=== PATIENT | male | born 1960 | race Caucasian/White ===

== ENCOUNTER 2018-09-16 03:57 | Emergency (ER) | payer BC, OTHER ==
[2018-09-16 04:10] VITALS: BP 143/77
--- NOTE | 2018-09-16 04:19 | EDM.PDOC ---
ED HPI GENERAL MEDICAL PROBLEM - General Chief Complaint: Back Pain or Injury Stated Complaint: Mid-back pain Time Seen by Provider: 09/16/18 04:15 Source of Information: Reports: Patient, Family (), Old Records ([facility] EMR. No paper hospital chart available.), Other ([place] EMR) History Limitations: Reports: No Limitations - History of Present Illness INITIAL COMMENTS - FREE TEXT/NARRATIVE: The patient was brought to the emergency room via private automobile for evaluation of a Workmen's Compensation injury, which occurred about 3 weeks ago. 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 He did follow -up with his regular providers at [facility] on 09/03 and 09/09 with negative x-rays in that facility on 09/03. He has seen his chiropractor and a physical therapist for 1 visit for his above complaints with no improvement with this treatment. Patient has been back to work for the last couple of days on restricted duty, including 20 pound lifting restriction, etc., with no acute injury this evening. His symptoms did worsen throughout his work today with the patient coming home from work at 23:00 hours this past evening. He did take his Zanaflex and Ultram at that time with no improvement of his symptoms. He has not taken either ibuprofen or Voltaren today. Note that prior to this the patient had been taking ibuprofen and Voltaren concurrently with an additional NSAID topical preparation and ice packs. No recent history of abdominal pain, heartburn, nausea, diarrhea, melena, gross hematochezia, or any food intolerance , including fatty foods, etc.. He denies any gross hematuria, colic, or other UTI symptoms. The patient denies any chest pain/pressure, heart flutter, dizziness, orthostasis, orthopnea, diaphoresis, paresthesias, recent decreased exercise tolerance, or any other anginal-type symptoms. The patient also denies any recent fever, cough, wheezing, dyspnea, etc.. Onset: Gradual, Unknown/Unsure Duration: Constant, Getting Worse Location: Reports: Back. 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: Cold Therapy, Other Medication(s) (As above) Middle Back Pain Score (Numeric/FACES): 10 - Related Data Allergies Allergy/AdvReac Type Severity Reaction Status Date / Time No Known Allergies Allergy Verified 03/04/14 19:02 Home Meds: Home Meds Aspirin [Juan Chewable Aspirin] 81 mg PO DAILY 03/04/14 [History] atorvaSTATin Calcium [Atorvastatin Calcium] 40 mg PO DAILY 09/16/18 [History] tiZANidine HCl [Tizanidine HCl] 2 mg PO TID PRN 09/16/18 [History] traMADol HCl [Tramadol HCl] 50 mg PO Q6H PRN 09/16/18 [History] Past Medical History HEENT History: Reports: Other (See Below) Other HEENT History: Nasal fracture as a teenager Cardiovascular History: Reports: Afib, High Cholesterol, Other (See Below) Other Cardiovascular History: Atrial fibrillation has since resolved. Mild left atrial enlargement by echocardiogram. Respiratory History: Reports: Sleep Apnea, Other (See Below) Other Respiratory History: CPAP therapy Gastrointestinal History: Reports: None Genitourinary History: Reports: None Musculoskeletal History: Reports: Arthritis, Back Pain, Chronic, Fracture, Osteoarthritis, Other (See Below) Other Musculoskeletal History: Nasal fracture as above. Low back injury in about 1994. Right ankle fracture at age 5 Endocrine/Metabolic History: Reports: Obesity/BMI 30+ - Past Surgical History HEENT Surgical History: Reports: Oral Surgery, Other (See Below) Other HEENT Surgeries/Procedures: [place] teeth extraction in 1998 GI Surgical History: Reports: Colonoscopy, Other (See Below) Other GI Surgeries/Procedures: Colonoscopy on 04/17/16 Male Surgical History: Reports: Vasectomy, Other (See Below) Other Male Surgeries/Procedures: Vasectomy in 2012 at age 43 Musculoskeletal Surgical History: Reports: Arthroscopic Knee, Arthroscopic Procedure, Other (See Below) Other Musculoskeletal Surgeries/Procedures:: Right knee arthroscopic partial medial and lateral meniscectomies on 01/04/15. - Past Imaging History Past Imaging History: Reports: Cardiac Echo (01/24/13 with ejection fraction of 65% and findings as above.), MRI (Lumbar spine on 12/22/14.), Sleep Study (.) Social & Family History - Tobacco Use Smoking Status *Q: Current Every Day Smoker Tobacco Use Within Last Twelve Months: Cigarettes Years of Tobacco use: 44 Packs/Tins Daily: 1 Packs/Tins Daily Comment: Started smoking at age 14 with maximum use of 2 packs per day Used Tobacco, but Quit: No Smoking Cessation Information Provided To Patient: Yes Second Hand Smoke Exposure: No Second Hand Smoke Education Provided: No - Living Situation & Occupation Living situation: Reports: (2006, 4 children), with Family 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 ED EXAM,LOWER BACK PAIN/INJURY - Physical Exam Exam: See Below Exam Limited By: No Limitations General Appearance: Alert, WD/WN, Mild Distress. No: Lethargic Neck: Normal Inspection, Supple, Non-Tender, Full Range of Motion Respiratory/Chest: No Respiratory Distress, Lungs Clear, Normal Breath Sounds, No Accessory Muscle Use, Chest Non-Tender. No: Pleural Rub, Retractions Cardiovascular: Normal Peripheral Pulses, Regular Rate, Rhythm, No Edema, No Gallop, No JVD, No Murmur, No Rub. No: Gallop/S3, Gallop/S4, Friction Rub GI/Abdominal: Normal Bowel Sounds, Soft, Non-Tender, No Organomegaly, No Distention, No Abnormal Bruit, No Mass, Pelvis Stable, Other (Obese). No: Guarding (Male) Exam: Deferred Rectal (Males) Exam: Deferred Back Exam: Decreased Range of Motion (Secondary to pain), Muscle Spasm ( Moderate lower to mid thoracic bilateral muscle spasms with nonspecific localized tenderness). No: CVA Tenderness (L), CVA Tenderness (R), Paraspinal Tenderness, Vertebral Tenderness Extremities: Normal Inspection, Normal Range of Motion, Non-Tender, No Pedal Edema, Normal Capillary Refill. No: Re's Sign Neurological: Alert, Normal Mood/Affect, Normal Dorsiflexion, CN II-XII Intact, Normal Plantar Flexion, Normal Gait, No Motor/Sensory Deficits, Oriented x 3 Psychiatric: Normal Affect, Normal Mood Skin Exam: Warm, Dry, Intact, Normal Color, No Rash. No: Diaphoretic Lymphatic: No Adenopathy Course - Vital Signs Last Recorded V/S: Last Vital Signs Temp 36.7 C 09/16/18 04:00 Pulse 61 09/16/18 04:00 Resp 16 09/16/18 04:00 BP 143/77 H 09/16/18 04:00 Pulse Ox 100 09/16/18 04:00 Vital Signs - 24 hr 09/16/18 04:00 Temperature [ 36.7 C Oral] Pulse, 61 Peripheral [ Pulse Oximetry] Respiratory 16 Rate Blood Pressure 143/77 H [Right Upper Arm] O2 Sat by Pulse 100 Oximetry - Orders/Labs/Meds Orders: Active Orders 24 hr Category Date Time Status Obtain Past Medical Record [OM.PC] Routine Oth 09/16/18 04:19 Active Labs: None Meds: Medications Discontinued Medications Generic Name Dose Route Start Last Admin Trade Name Ernesto PRN Reason Stop Dose Admin Ketorolac Tromethamine 60 mg 09/16/18 04:23 09/16/18 04:33 Toradol IM 09/16/18 04:24 60 mg ONETIME ONE Administration Lorazepam 2 mg 09/16/18 04:24 09/16/18 04:34 Ativan IM 09/16/18 04:25 2 mg ONETIME ONE Administration - Radiology Interpretation Free Text/Narrative:: None Departure - Departure Time of Disposition: 04:55 Disposition: Home, Self-Care 01 Condition: Good Clinical Impression: Afib, Atrial fibrillation, Tobacco abuse counseling Back pain Qualifiers: Back pain location: thoracic back pain Chronicity: acute Back pain laterality: midline Qualified Code(s): M54.6 - Pain in thoracic spine Hyperlipidemia Qualifiers: Hyperlipidemia type: unspecified Qualified Code(s): E78.5 - Hyperlipidemia, unspecified Osteoarthritis Qualifiers: Osteoarthritis location: multiple joints Osteoarthritis type: primary Qualified Code(s): M15.0 - Primary generalized (osteo)arthritis - Discharge Information *PRESCRIPTION DRUG MONITORING PROGRAM REVIEWED*: Not Applicable *COPY OF PRESCRIPTION DRUG MONITORING REPORT IN PATIENT CAROLINE: Not Applicable Instructions: Health Risks of Smoking, Back Exercises, [id number], Mid-Back Strain Rehab-SportsMed Referrals: Boogie Cano PA-C [Primary Care Provider] - Forms: ED Department Discharge Additional Instructions: 1. Followup with your regular provider tomorrow as already scheduled. Bring these discharge instructions with you to that visit. 2. Tylenol 650 mg by mouth every 4 hours and/or OTC ibuprofen 2-3 tabs by mouth every 6 hours with food as directed./needed. You may stagger these medications for 48-72 hours only, which essentially means that you are receiving a pain medication about every 2 hours. Next dose of ibuprofen in 6 hours secondary to medications given in the emergency room 3. May use your muscle relaxant in 6 hours as needed but no sooner secondary to medications given in the emergency room 4. Sedation precautions with no driving, etc. for 12 hours because of emergency room medications. 5. BenGay or equivalent, heating pad, and/or ice packs as directed. 6. Stop all tobacco use CHICHO as directed/per provided information and consider contacting Quit LIne, etc.. 7. Immediately after this visit verify that your cellular telephone's voicemail has been activated and is empty. Also verify that your home telephone 's answering machine is operating properly and has space to receive messages. Note that it is sometimes necessary for us to be able to contact you at a later date to discuss your medical care. 8. Please remember that we are ALWAYS here for you and want to answer any questions you may have. Feel free to call the hospital any time and we call you back CHIC[place]. - Problem List & Annotations (1) Back pain SNOMED Code(s): 630145627 Code(s): M54.9 - DORSALGIA, UNSPECIFIED Status: Acute Priority: High Current Visit: Yes Annotation/Comment:: Patient has a follow-up appointment with his regular provider already scheduled for later this morning. Temporary Workmen's Compensation and [employer] work excuse forms were completed this evening with the patient to provide us with a specific date of injury and the initial report. Improved compliance with chiropractic and physical therapy treatments was encouraged. He is currently on multiple NSAID preparations with patient requesting to stay on ibuprofen only at this time. They were counseled concerning the risk of hepatic and renal injury with excessive NSAID use. Consider MRI of the thoracic spine, if symptoms continue to remain refractory to therapy with possible neurosurgical referral. Patient was also counseled on their relationship of his chronic back pain to his obesity with weight loss in moderation advisable. Previously he normally had only low back type symptoms. Activity restrictions, sedation precautions, etc. were discussed. Patient is already on work restrictions. Note that no apparent history of fall, paresthesias, neurological deficits, etc. both by clinical history and exam today and also review of [facility] note from 09/03/18. Qualifiers: Back pain location: thoracic back pain Chronicity: acute Back pain laterality: midline Qualified Code(s): M54.6 - Pain in thoracic spine (2) Hyperlipidemia SNOMED Code(s): 71711490 Code(s): E78.5 - HYPERLIPIDEMIA, UNSPECIFIED Status: Chronic Current Visit: Yes Annotation/Comment:: Continue current medical therapy with weight loss in moderation advisable secondary to his current obesity Qualifiers: Hyperlipidemia type: unspecified Qualified Code(s): E78.5 - Hyperlipidemia , unspecified (3) Osteoarthritis SNOMED Code(s): 202348348 Code(s): M19.90 - UNSPECIFIED OSTEOARTHRITIS, UNSPECIFIED SITE Status: Chronic Priority: Medium Current Visit: Yes Annotation/Comment:: Otherwise stable by history Qualifiers: Osteoarthritis location: multiple joints Osteoarthritis type: primary Qualified Code(s): M15.0 - Primary generalized (osteo)arthritis (4) Tobacco abuse counseling SNOMED Code(s): 089746123, [id number], 459962462 Code(s): Z71.6 - TOBACCO ABUSE COUNSELING Status: Chronic Priority: Medium Current Visit: Yes Annotation/Comment:: Tobacco cessation strongly encouraged with information provided at discharge. - Problem List Review Problem List Initiated/Reviewed/Updated: Yes - My Orders Last 24 Hours: My Active Orders 09/16/18 04:19 Obtain Past Medical Record [OM.PC] Routine - Assessment/Plan Last 24 Hours: My Active Orders 09/16/18 04:19 Obtain Past Medical Record [OM.PC] Routine Assessment:: As above Plan: As above. Extensive precautions were given to the patient and his , who are in agreement with the treatment plan. See Patient Instructions for further treatment and plan.
[2018-09-16] MEDS: Ketorolac 60 MG/2 ML SDV IM ONE (04:33)
[2018-09-16] MEDS: LORazepam 2 MG/ML SDV IM ONE (04:34)
== END 2018-09-16 04:55 | disposition home or self-care (01) ==
LOC: LL.ED 03:57
DX: M54.6 Pain in thoracic spine (principal); E78.5 Hyperlipidemia, unspecified; M15.0 Primary generalized (osteo)arthritis; I48.91 Unspecified atrial fibrillation; E78.00 Pure hypercholesterolemia, unspecified; F17.210 Nicotine dependence, cigarettes, uncomplicated; Z98.818 Other dental procedure status; Z79.82 Long term (current) use of aspirin; Z79.899 Other long term (current) drug therapy; Z71.6 Tobacco abuse counseling
CPT/HCPCS: 96372; 99283; J1885; J2060